=== PATIENT | female | born 1935 | race Caucasian/White ===

== ENCOUNTER 2016-06-11 08:38 | Emergency (ER) | payer MEDICARE, OTHER ==
[~2016-06-11] VITALS: Ht 162.6 cm; Wt 80.0 kg
[~2016-06-11 08:38] MED LIST: ALEN70TA39 PO; BEDSMIS4; CALA240T PO; CALC500T21 PO; CITA10TA4 PO; DOXA1 PO; GABA300C3 PO; HYDR-3534 PO; LISI-360 PO; MOTI25CH PO; OMEP20TA39 PO; PREN0.01 PO; TYLE500T PO; VITA-13 PO; Z.0.CPM; Z.0.WALKERFRONT; Z.0.WHEELSTD
[2016-06-11 08:40] VITALS: BP 114/70; PULSE 94; RESP 16; TEMP 98.7; O2SAT 95
[2016-06-11] MEDS ORDERED: ATOR40TA16 PO (09:00)
[2016-06-11] MEDS ORDERED: ASPI325T PO (09:00)
[2016-06-11] MEDS ORDERED: OMEP20CA2 PO (09:00)
[2016-06-11] MEDS ORDERED: DOXA1TAB35 PO (09:00)
[2016-06-11] MEDS ORDERED: VERA1TAB17 PO (09:00)
[2016-06-11] MEDS ORDERED: GABA300C5 PO (09:00)
[2016-06-11] MEDS ORDERED: CALCTAB23 PO (09:00)
[2016-06-11] MEDS ORDERED: LISI40TA PO (09:00)
[2016-06-11] MEDS ORDERED: AMLO5TAB2 PO (09:00)
[2016-06-11] MEDS ORDERED: PRENTAB (09:00)
[2016-06-11] MEDS ORDERED: CITA10TA4 PO (09:00)
[2016-06-11] MEDS ORDERED: ALEN1TAB48 PO (09:00)
[2016-06-11] MEDS ORDERED: MECL-62 PO (09:00)
--- NOTE | 2016-06-11 09:31 | PD ---
HPI Chief Complaint: Fall Time Seen by Provider: 09:18 Travel History International Travel<30 days: No Contact w/Intl Traveler<30days: No Traveled to known affect area: No History of Present Illness HPI Patient 81-year-old female presents after trip and fall at home yesterday. She complains of right-sided face and left elbow pain. She also states she bruised her left thigh. Denies any loss of consciousness denies any chest pain shortness of breath abdominal pain nausea vomiting diarrhea. Patient is having pain on supination of her right wrist and decided to come in and be seen. PFSH Past Medical History Hx Anticoagulant Therapy: Yes (ASA 325MG DAILY) Arthritis: Yes Asthma: No Autoimmune Disease: No Blood Disorders: No Anxiety: Yes Cancer: No Cardiovascular Problems: Yes High Cholesterol: No Congestive Heart Failure: No COPD: No Cerebrovascular Accident: No Diabetes: No Diminished Hearing: No Endocrine: No Gastrointestinal Disorders: Yes (DYSPHAGIA, ESOPHAGEAL STRICTURE, ULCER HX) GERD: Yes Genitourinary: Yes Hepatitis: No Hiatal Hernia: No Hypertension: Yes Immune Disorder: No Implanted Vascular Access Dvce: Yes Musculoskeletal: Yes (ARTHRITIS, LUMBAR DISC DISPLACEMENT, OSTEO) Neurologic: Yes Psychiatric: Yes (ANXIETY) Reproductive: No Respiratory: No Seizures: No Thyroid Disease: No Ulcer: Yes ?: Not Dilation and Curettage (D&C): Yes Past Surgical History AICD: No Body Medical Devices: REPORTS NONE Eye Surgery: Yes (LOWER LAQUITA. ENTROPIAN REP.) Gynecologic Surgery: Yes (HYSTERECTOMY) Hysterectomy: Yes Joint Replacement: Yes (12/12/14 LTK) Oral Surgery: Yes (TONSILLECTOMY) Pacemaker: No Tonsillectomy: Yes Other Surgery: Yes (12/12/14 LTK) Social History Alcohol Use: No Tobacco Use: No Substance Use: No Allergies-Medications (Allergen,Severity, Reaction): Coded Allergies: No Known Allergies (Verified , 06/11/16) Reported Meds & Prescriptions Reported Meds & Active Scripts Active Reported Citalopram (Citalopram Hydrobromide) 10 Mg Tab 10 Mg PO HS Calcium 500 + D (Calcium Carbonate-Vitamin D) 500-125 Mg-Unit Tab 1 Tab PO DAILY Atorvastatin (Atorvastatin Calcium) 40 Mg Tab 40 Mg PO HS Aspirin 325 Mg Tab 325 Mg PO DAILY Amlodipine (Amlodipine Besylate) 5 Mg Tab 5 Mg PO DAILY Low Iron 27-0.8 mg ( Vit W/ Ferrous Fumara) 1 Tab Tab Lisinopril 40 Mg Tab 40 Mg PO DAILY Doxazosin (Doxazosin Mesylate) 2 Mg Tab 2 Mg PO BID Gabapentin 300 Mg Cap 300 Mg PO BID Meclizine (Meclizine HCl) 25 Mg Tab 25 Mg PO BID PRN Alendronate (Alendronate Sodium) 70 Mg Tab 70 Mg PO Q7D Verapamil ER 24 HR (Verapamil HCl) 240 Mg Tab 240 Mg PO HS Omeprazole 20 Mg Cap 20 Mg PO DAILY Review of Systems Except as stated in HPI: all other systems reviewed are Neg Physical Exam Narrative GENERAL: Well-developed well-nourished no apparent distress. SKIN: Warm and dry. Other than the bruise outlined below on the lateral thigh there is no visible evidence of trauma. HEAD: Atraumatic. Normocephalic. No raccoons eyes no cam signs and no facial bruising or tenderness. EYES: Pupils equal and round. No scleral icterus. No injection or drainage. ENT: No nasal bleeding or discharge. Mucous membranes pink and moist. TMs clear bilaterally. NECK: Trachea midline. No JVD. CARDIOVASCULAR: Regular rate and rhythm. No murmur appreciated. RESPIRATORY: No accessory muscle use. Clear to auscultation. Breath sounds equal bilaterally. GASTROINTESTINAL: Abdomen soft, non-tender, nondistended. Hepatic and splenic margins not palpable. MUSCULOSKELETAL: No obvious deformities. No clubbing. No cyanosis. No edema. Left upper extremity: There is tenderness about the antecubital fossa in the left arm. Supination is limited by pain, no shoulder tenderness no humeral tenderness no forearm tenderness no wrist or hand tenderness. Pulses motor and sensory are intact distally. There is some range of motion limitation of the fingers which patient states is chronic from her arthritis. Patient is able to extend and flex her elbow to full range of motion. Right upper extremity: No tenderness of the shoulder humerus elbow forearm wrist or hand. Pulses motor and sensory intact distally. Left lower extremity: There is a small bruise about the lateral aspect at approximately mid femur shaft. There is no hematoma compartments are soft. Nontender to palpation. No gross deformity. No tenderness at the hip knee ankle or foot. Pulses motor and sensory intact distally. Right lower extremity: There is no tenderness at the hip knee ankle or foot. Pulses motor and sensory intact distally. No gross deformities. Axial spine: no tenderness at the CT or L-spine tenderness in midline. No step-offs. Pelvis stable. NEUROLOGICAL: Awake and alert. No obvious cranial nerve deficits. Motor grossly within normal limits. Normal speech. PSYCHIATRIC: Appropriate mood and affect; insight and judgment normal. Data Data Last Documented VS Vital Signs Date Time Temp Pulse Resp B/P Pulse Ox O2 Delivery O2 Flow Rate FiO2 06/11/16 08:40 98.7 94 16 114/[address] Brain W/O Iv Contrast(Rout) (06/11/16 ) Ct Cerv Spine W/O Contrast (06/11/16 ) Elbow, Complete (4 Vws) (06/11/16 ) Hip, Uni(Ap&Lat) W Ap Pelvis (06/11/16 ) Splint Or Brace Apply/Monitor (06/11/16 09:58) Splint Or Brace Apply/Monitor (06/11/16 09:58) Fiberglass Splint Elbow Adult (06/11/16 ) Sling Cradle Arm (06/11/16 ) MDM Medical Decision Making Medical Screen Exam Complete: Yes Emergency Medical Condition: Yes Differential Diagnosis Humeral head fracture, olecranon fracture, left hip fracture, pelvis fracture likely, closed head injury, C-spine fracture seems unlikely but unable to be cleared by clinical decision rules, Narrative Course Patient roomed in emergency department, CT head and C-spine are negative, left hip and pelvis x-rays negative. Left elbow x-ray does show minimally displaced humeral head fracture. Patient was placed in a splint pulse motor and sensory were checked after splinting and intact. Discussed the patient need follow-up with an orthopedic surgeon. She states she has established with one already Dr. Ramirez who I'm unfamiliar with. Discussed with place referral for Dr. Sherman if Dr. Ramirez is unwilling to see her. Otherwise she is stable for discharge at this time. She was offered pain medicine in the emergency department and declined. She states she has pain medicine at home and will take some when she gets there. Diagnosis Primary Impression: Radial head fracture Qualified Code: S52.122A - Closed displaced fracture of head of left radius, initial encounter Additional Impression: Closed head injury Referrals: Mohit Womack MD Additional Instructions: Follow-up with your orthopedist or Dr. Sherman. Leave splint in place until you follow up with orthopedics. Disposition: 01 DISCHARGE HOME Condition: Stable Redd Peterson MD Jun 11, 2016 09:30
--- NOTE | 2016-06-11 09:55 | RADHPO ---
EXAM DATE/TIME: 06/11/2016 09:26 [facility] COMPARISON: No previous studies available for comparison. INDICATIONS : Left elbow pain fell lastnight. MEDICAL HISTORY : Arthritis. SURGICAL HISTORY : None. ENCOUNTER: Initial ACUITY: 1 day PAIN SCORE: 8/10 LOCATION: Left elbow. FINDINGS: One oblique fracture is seen anterolaterally of the radial head and neck. Fracture appears minimally displaced. No significant step-off/incongruity seen of the articular surface. No other fractures are seen. No subluxations. A moderate-sized lipohemarthrosis is demonstrated. CONCLUSION: Minimally displaced fracture of the radial head and neck. Salvatore Ruby MD on June 11, 2016 at 9:53 Board Certified Radiologist. This report was verified electronically.
--- NOTE | 2016-06-11 09:57 | RADHPO ---
EXAM DATE/TIME: 06/11/2016 09:35 [facility] COMPARISON: No previous studies available for comparison. INDICATIONS : Left hip pain; fell lastnight. MEDICAL HISTORY : Arthritis. SURGICAL HISTORY : None. ENCOUNTER: Initial ACUITY: 1 day PAIN SCORE: 6/10 LOCATION: Left hip FINDINGS: Examination of the left hip was performed with AP Pelvis. The primary and secondary trabecular patte rn of the femoral neck is intact. The hip joint is of normal width without significant sclerosis or bony hypertrophy. The acetabulum is intact. There is mild osteoarthritis. CONCLUSION: Intact pelvis and left hip. Salvatore Ruby MD on June 11, 2016 at 9:55 Board Certified Radiologist. This report was verified electronically.
--- NOTE | 2016-06-11 10:12 | RADHPO ---
EXAM DATE/TIME: 06/11/2016 09:44 [facility] COMPARISON: CT BRAIN W/O CONTRAST, March 17, 2013, 10:37. MRI BRAIN W/O CONTRAST, February 15, 2014, 9:51. C T BRAIN W/O CONTRAST, February 15, 2014, 8:56. INDICATIONS : Fell last night and hit head. Headache. RADIATION DOSE: 60.33 CTDIvol (mGy) MEDICAL HISTORY : Hypertension. Anticoagulant therapy. SURGICAL HISTORY : Tonsillectomy. Hysterectomy.Orthopedic surgery. ENCOUNTER: Initial ACUITY: 2 days PAIN SCALE: 3/10 LOCATION: cranial TECHNIQUE: Multiple contiguous axial images were obtained of the head. Using automated exposure control and adj ustment of the mA and/or kV according to patient size, radiation dose was kept as low as reasonably a chievable to obtain optimal diagnostic quality images. FINDINGS: CEREBRUM: The ventricles are normal for age. No evidence of midline shift, mass lesion, hemorrhage or acute in farction. No extra-axial fluid collections are seen. Mild chronic white matter changes are again not ed. POSTERIOR FOSSA: The cerebellum and brainstem are intact. The 4th ventricle is midline. The cerebellopontine angle i s unremarkable. EXTRACRANIAL: The visualized portion of the orbits is intact. SKULL: The calvaria is intact. No evidence of skull fracture. 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 CONCLUSION: No acute intracranial abnormality. Chronic white matter changes. Salvatore Ruby MD on June 11, 2016 at 10:08 Board Certified Radiologist. This report was verified electronically.
--- NOTE | 2016-06-11 10:50 | RADHPO ---
EXAM DATE/TIME: 06/11/2016 09:44 [facility] COMPARISON: No previous studies available for comparison. INDICATIONS : Fell last night and hit head. Pain. RADIATION DOSE: 25.60 CTDIvol (mGy) MEDICAL HISTORY : Hypertension. Anticoagulant therapy. SURGICAL HISTORY : Tonsillectomy. Hysterectomy.Orthopedic surgery. ENCOUNTER: Initial ACUITY: 2 days PAIN SCALE: 3/10 LOCATION: neck TECHNIQUE: Volumetric scanning of the cervical spine was performed. Multiplanar reconstructions in the sagittal, coronal and oblique axial planes were performed. Using automated exposure control and adjustment o f the mA and/or kV according to patient size, radiation dose was kept as low as reasonably achievable to obtain optimal diagnostic quality images. FINDINGS: Cervical spine alignment is within normal limits. Vertebral bodies have normal height. No cortical br eak or trabecular disruption demonstrated. Multilevel disc space narrowing with uncovertebral and facet osteoarthritis seen, severe at C5/C6 and C6/C7, moderate to severe at C4/C5. There is mild to moderate bilateral foraminal stenosis at C5/C6 and C6/C7. Juxtavertebral soft tissues are within normal limits. CONCLUSION: No fracture or subluxation of the cervical spine. Multilevel degenerative changes as above. Salvatore Ruby MD on June 11, 2016 at 10:46 Board Certified Radiologist. This report was verified electronically.
== END 2016-06-11 11:05 | disposition home or self-care (01) ==
LOC: PHED 08:38
DX: S52.122A Displaced fracture of head of left radius, initial encounter for closed fracture (principal); R51 Headache; M25.552 Pain in left hip; S70.12XA Contusion of left thigh, initial encounter; I10 Essential (primary) hypertension; W01.0XXA Fall on same level from slipping, tripping and stumbling without subsequent striking against object, initial encounter; Y93.9 Activity, unspecified; Y92.009 Unspecified place in unspecified non-institutional (private) residence as the place of occurrence of the external cause
CPT/HCPCS: 29105; 70450; 72125; 73080; 73502

== ENCOUNTER 2016-11-25 10:49 | Observation (INO) | payer MEDICARE ==
[2016-11-25] VITALS (10 sets, daily range): BP systolic 119–154; BP diastolic 59–75; PULSE 63–86; RESP 16–20; TEMP 96.4–98.6; O2SAT 94–97
[~2016-11-25] VITALS: Ht 162.6 cm; Wt 80.0 kg
[~2016-11-25 10:49] MED LIST changes: +ALEN1TAB48 PO; -ALEN70TA39 PO; +AMLO5TAB2 PO; +ASPI325T PO; +ATOR40TA16 PO; -BEDSMIS4; -CALA240T PO; -CALC500T21 PO; +CALCTAB23 PO; -DOXA1 PO; +DOXA1TAB35 PO; -GABA300C3 PO; +GABA300C5 PO; -HYDR-3534 PO; -LISI-360 PO; +LISI40TA PO; +MECL-62 PO; -MOTI25CH PO; +OMEP20CA2 PO; -OMEP20TA39 PO; -PREN0.01 PO; +PRENTAB; -TYLE500T PO; +VERA1TAB17 PO; -VITA-13 PO; -Z.0.CPM; -Z.0.WALKERFRONT; -Z.0.WHEELSTD
[2016-11-25] MEDS ORDERED: DOXA1TAB35 PO (11:14)
--- NOTE | 2016-11-25 11:20 | PD ---
HPI Chief Complaint: Chest Pain Time Seen by Provider: 11:16 Travel History International Travel<30 days: No Contact w/Intl Traveler<30days: No Traveled to known affect area: No History of Present Illness HPI 81-year-old female patient presents to the ER today because she has had several weeks' history of right leg pains especially in the upper thigh area for which she has been following up with primary care doctor and has been told to take aspirin, presents to the ER today because of intermittent right chest pains that started on its own. She states that the pains are a 7 out of 10 and cover 10 minutes at a time and go away. She denies any shortness of breath, coughing , fevers, abdominal pain, or any other issues. She does not know any exacerbating or alleviating factors. Modifying Factors: None Associated Signs & Symptoms: Right leg pains, intermittent chest pains Risk Factors: None PFSH Past Medical History Hx Anticoagulant Therapy: Yes (ASA 325MG DAILY) Arthritis: Yes Asthma: No Autoimmune Disease: No Blood Disorders: No Anxiety: Yes Cancer: No Cardiovascular Problems: Yes High Cholesterol: No Congestive Heart Failure: No COPD: No Cerebrovascular Accident: No Diabetes: No Diminished Hearing: No Endocrine: No Gastrointestinal Disorders: Yes (DYSPHAGIA, ESOPHAGEAL STRICTURE, ULCER HX) GERD: Yes Genitourinary: Yes Hepatitis: No Hiatal Hernia: No Hypertension: Yes Immune Disorder: No Implanted Vascular Access Dvce: Yes Musculoskeletal: Yes (ARTHRITIS, LUMBAR DISC DISPLACEMENT, OSTEO) Neurologic: Yes Psychiatric: Yes (ANXIETY) Reproductive: No Respiratory: No Seizures: No Thyroid Disease: No Ulcer: Yes Tetanus Vaccination: > 5 Years Influenza Vaccination: No ?: Not Menopausal: Yes Dilation and Curettage (D&C): Yes Past Surgical History AICD: No Body Medical Devices: REPORTS NONE Eye Surgery: Yes (LOWER LAQUITA. ENTROPIAN REP.) Gynecologic Surgery: Yes (HYSTERECTOMY) Hysterectomy: Yes Joint Replacement: Yes (12/12/14 LTK) Oral Surgery: Yes (TONSILLECTOMY) Pacemaker: No Tonsillectomy: Yes Other Surgery: Yes (12/12/14 LTK) Social History Alcohol Use: No Tobacco Use: No Substance Use: No Allergies-Medications (Allergen,Severity, Reaction): Coded Allergies: No Known Allergies (Verified , 11/25/16) Reported Meds & Prescriptions Reported Meds & Active Scripts Active Reported Doxazosin (Doxazosin Mesylate) 2 Mg Tab 2 Mg PO DAILY Citalopram (Citalopram Hydrobromide) 10 Mg Tab 10 Mg PO HS Calcium 500 + D (Calcium Carbonate-Vitamin D) 500-125 Mg-Unit Tab 1 Tab PO DAILY Atorvastatin (Atorvastatin Calcium) 40 Mg Tab 40 Mg PO HS Aspirin 325 Mg Tab 325 Mg PO DAILY Amlodipine (Amlodipine Besylate) 5 Mg Tab 5 Mg PO DAILY Low Iron 27-0.8 mg ( Vit W/ Ferrous Fumara) 1 Tab Tab Lisinopril 40 Mg Tab 40 Mg PO DAILY Gabapentin 300 Mg Cap 300 Mg PO BID Alendronate (Alendronate Sodium) 70 Mg Tab 70 Mg PO Q7D Verapamil ER 24 HR (Verapamil HCl) 240 Mg Tab 240 Mg PO HS Omeprazole 20 Mg Cap 20 Mg PO DAILY Review of Systems Except as stated in HPI: all other systems reviewed are Neg Physical Exam Narrative GENERAL: Well-developed elderly white female patient currently in mild distress at awake and oriented 3. SKIN: Focused skin assessment warm/dry. HEAD: Atraumatic. Normocephalic. EYES: Pupils equal and round. No scleral icterus. No injection or drainage. ENT: No nasal bleeding or discharge. Mucous membranes pink and moist. NECK: Trachea midline. No JVD. CARDIOVASCULAR: Regular rate and rhythm. No murmur appreciated. Pulses are present and equal bilaterally. RESPIRATORY: No accessory muscle use. Clear to auscultation. Breath sounds equal bilaterally. GASTROINTESTINAL: Abdomen soft, non-tender, nondistended. Hepatic and splenic margins not palpable. MUSCULOSKELETAL: No obvious deformities. No clubbing. No cyanosis. No edema. EXTREMITIES: No clubbing, cyanosis, or edema. No joint tenderness, effusion, or edema noted. No calf tenderness. NEUROLOGICAL: Awake and alert. No obvious cranial nerve deficits. Motor grossly within normal limits. Normal speech. PSYCHIATRIC: Appropriate mood and affect; insight and judgment normal. Data Data Last Documented VS Vital Signs Date Time Temp Pulse Resp B/P (MAP) Pulse Ox O2 Delivery O2 Flow Rate FiO2 11/25/16 13:34 77 16 136/61 (86) 96 Room Air 11/25/16 11:03 98.6 Orders Orders Electrocardiogram (11/25/16 11:16) Ckmb (Isoenzyme) Profile (11/25/16 11:16) Complete Blood Count With Diff (11/25/16 11:16) Comprehensive Metabolic Panel (11/25/16 11:16) D-Dimer (11/25/16 11:16) Magnesium (Mg) (11/25/16 11:16) Prothrombin Time / Inr (Pt) (11/25/16 11:16) Act Partial Throm Time (Ptt) (11/25/16 11:16) Troponin I (11/25/16 11:16) Chest, Single Ap (11/25/16 11:16) Ecg Monitoring (11/25/16 11:16) Bilateral Bp Monitoring (11/25/16 11:16) Iv Access Insert/Monitor (11/25/16 11:16) Oximetry (11/25/16 11:16) Oxygen Administration (11/25/16 11:16) Sodium Chloride 0.9% Flush (Ns Flush) (11/25/16 11:30) Us Leg Venous Doppler (11/25/16 11:16) Ventilation & Perfusion Scan (11/25/16 12:10) Labs Laboratory Tests Test 11/25/16 11:20 White Blood Count 10.1 TH/MM3 Red Blood Count 3.81 MIL/MM3 Hemoglobin 11.7 GM/DL Hematocrit 35.5 % Mean Corpuscular Volume 93.1 FL Mean Corpuscular Hemoglobin 30.6 PG Mean Corpuscular Hemoglobin Concent 32.9 % Red Cell Distribution Width 12.6 % Platelet Count 243 TH/MM3 Mean Platelet Volume 7.9 FL Neutrophils (%) (Auto) 85.5 % Lymphocytes (%) (Auto) 10.0 % Monocytes (%) (Auto) 4.4 % Eosinophils (%) (Auto) 0.0 % Basophils (%) (Auto) 0.1 % Neutrophils # (Auto) 8.7 TH/MM3 Lymphocytes # (Auto) 1.0 TH/MM3 Monocytes # (Auto) 0.4 TH/MM3 Eosinophils # (Auto) 0.0 TH/MM3 Basophils # (Auto) 0.0 TH/MM3 CBC Comment DIFF FINAL Differential Comment Prothrombin Time 11.1 SEC Prothromb Time International Ratio 1.0 RATIO Activated Partial Thromboplast Time 24.5 SEC D-Dimer Quantitative (PE/DVT) 1.51 MG/L FEU Blood Urea Nitrogen 25 MG/DL Creatinine 1.30 MG/DL Random Glucose 103 MG/DL Total Protein 8.0 GM/DL Albumin 3.7 GM/DL Calcium Level 9.1 MG/DL Magnesium Level 2.2 MG/DL Alkaline Phosphatase 93 U/L Aspartate Amino Transf (AST/SGOT) 20 U/L Alanine Aminotransferase (ALT/SGPT) 21 U/L Total Bilirubin 0.4 MG/DL Sodium Level 134 MEQ/L Potassium Level 3.6 MEQ/L Chloride Level 100 MEQ/L Carbon Dioxide Level 26.5 MEQ/L Anion Gap 8 MEQ/L Estimat Glomerular Filtration Rate 39 ML/MIN Total Creatine Kinase 53 U/L Troponin I LESS THAN 0.02 NG/ML [facility] Medical Decision Making Medical Screen Exam Complete: Yes Emergency Medical Condition: Yes Medical Record Reviewed: Yes Interpretation(s) EKG shows NSR, no ST elevation or depression, and no arrhythmias. No significant T-wave inversions. Laboratory Tests Test 11/25/16 11:20 Red Blood Count 3.81 MIL/MM3 (4.00-5.30) Neutrophils (%) (Auto) 85.5 % (16.0-70.0) Neutrophils # (Auto) 8.7 TH/MM3 (1.8-7.7) D-Dimer Quantitative (PE/DVT) 1.51 MG/L FEU (0.00-0.50) Blood Urea Nitrogen 25 MG/DL (7-18) Creatinine 1.30 MG/DL (0.50-1.00) Sodium Level 134 MEQ/L (136-145) Estimat Glomerular Filtration Rate 39 ML/MIN (>89) Troponin I LESS THAN 0.02 NG/ML Differential Diagnosis Right leg pains, intermittent chest pains: DVT versus muscle strain versus metabolic issues versus dysrhythmias versus ACS Narrative Course Chest x-ray did not show any signs of acute pulmonary processes. Her cardiac enzymes are negative. D-dimer is elevated and a VQ scan was ordered for further evaluation. Ultrasound was also ordered on the right leg to rule out DVT. Ultrasound did not show DVT and VQ scan was low probability. At this point, my plan would be to admit the patient for further evaluation a chest pain in the chest pain center. Case is discussed with Dr. Miller for admission. Diagnosis Primary Impression: Atypical chest pain Admitting Information Admitting Physician Requests: Admit Starr Whelan MD Nov 25, 2016 11:20
[2016-11-25] MEDS ORDERED: SODIUM CHLORIDE 0.9% FLUSH 10 ML FLUSH IVF PRN (11:30)
[2016-11-25 11:33] LABS: AUTOMATED NEUTROPHIL # 8.7 TH/MM3 (1.8-7.7); BASOPHIL % 0.1 % (0.0-2.0); HEMATOCRIT 35.5 % (35.0-46.0); HEMO FLAGS DIFF FINAL; MEAN CELL VOLUME 93.1 FL (80.0-100.0); MEAN CORPUSCULAR HEMOGLOBIN 30.6 PG (27.0-34.0); MEAN CORPUSCULAR HGB CONC 32.9 % (32.0-36.0); MONO % 4.4 % (0.0-8.0); NEUT % 85.5 % (16.0-70.0); PLATELET COUNT 243 TH/MM3 (150-450); RED BLOOD COUNT 3.81 MIL/MM3 (4.00-5.30); RED CELL DISTRIBUTION WIDTH 12.6 % (11.6-17.2); WHITE BLOOD COUNT 10.1 TH/MM3 (4.0-11.0)
[2016-11-25 11:42] LABS: CHLORIDE 100 MEQ/L (98-107); POTASSIUM 3.6 MEQ/L (3.5-5.1); SODIUM (NA) 134 MEQ/L (136-145)
[2016-11-25 11:45] LABS: ANION GAP 8 MEQ/L (5-15); BICARBONATE 26.5 MEQ/L (21.0-32.0); BLOOD UREA NITROGEN 25 MG/DL (7-18); MAGNESIUM 2.2 MG/DL (1.5-2.5)
[2016-11-25 11:47] LABS: APTT (PATIENT) 24.5 SEC (24.3-30.1); PROTHROMBIN TIME - PATIENT 11.1 SEC (9.8-11.6)
[2016-11-25 11:48] LABS: ALT (GPT) 21 U/L (10-53); AST (GOT) 20 U/L (15-37)
[2016-11-25 11:49] LABS: GLOMERULAR FILTRATION RATE 39 ML/MIN (>89)
[2016-11-25 11:50] LABS: TOTAL BILIRUBIN ADULT 0.4 MG/DL (0.2-1.0)
[2016-11-25 11:51] LABS: ALKALINE PHOSPHATASE 93 U/L (45-117)
[2016-11-25 11:53] LABS: CREATINE KINASE 53 U/L (26-192)
--- NOTE | 2016-11-25 11:54 | RADRPT ---
EXAM DATE/TIME: 11/25/2016 11:25 [facility] COMPARISON: No previous studies available for comparison. INDICATIONS : Patient has had chest pain off and on for two weeks. MEDICAL HISTORY : Hypertension. Gastroesophageal reflux disease. Osteoarthritis. Cataracts. Vertigh. Esophageal str icture. Dysphagia. Ulcer. Renal disease. SURGICAL HISTORY : Tonsillectomy. Hysterectomy. Total knee replacement, left. ENCOUNTER: Initial ACUITY: 2 weeks PAIN SCORE: 1/10 LOCATION: Bilateral chest FINDINGS: Cardiomegaly. Right lung is clear. There is blunting of the left lateral costophrenic angle. This may be related to chronic scarring or a small effusion. Osseous structures are intact. CONCLUSION: Blunted left lateral costophrenic angle as above. Cornelio Chu MD on November 25, 2016 at 11:52 Board Certified Radiologist. This report was verified electronically.
--- NOTE | 2016-11-25 13:11 | RADRPT ---
EXAM DATE/TIME: 11/25/2016 12:09 [facility] COMPARISON: No previous studies available for comparison. INDICATIONS : Right groin pain. MEDICAL HISTORY : Hypertension. Anticoagulant therapy. Dysphagia. Esophageal stricture. Ulcer. Arthritis. Renal d isease, Stage III. SURGICAL HISTORY : Tonsillectomy. Hysterectomy. Dilation and curettage. Lumbar synovial cystectomy. Left total knee re placement. ENCOUNTER: Initial ACUITY: 1 day PAIN SCORE: 4/10 LOCATION: Right leg. TECHNIQUE: Venous ultrasound of the leg was performed from the inguinal ligament to the proximal calf. Real-lili e, color Doppler and spectral tracing, compression and augmentation techniques were used. FINDINGS: There is normal compressibility of the deep venous system from the inguinal region to the proximal ca lf. No echogenic clot is seen in the lumen of the common femoral, femoral, popliteal, and posterior tibial veins. There is a normal response of the venous system to proximal and distal augmentation an d respiration. In the popliteal fossa a 4.8 x 4.2 x 2.2 cm fluid collection is identified characteri stic of a Nance's cyst. CONCLUSION: No evidence of DVT. Nance's cyst. Cornelio Chu MD on November 25, 2016 at 13:09 Board Certified Radiologist. This report was verified electronically.
--- NOTE | 2016-11-25 15:19 | RADRPT ---
EXAM DATE/TIME: 11/25/2016 12:56 [facility] COMPARISON: CHEST SINGLE AP, November 25, 2016, 11:25. INDICATIONS : Right chest pain for 1 day and right leg pain for several weeks. DOSE: 8.6 mCi Tc99m MAA IV 1.3 mCi Tc99m DTPA aerosol MEDICAL HISTORY : Gastroesophageal reflux disease. Hypertension. Renal failure, chronic. SURGICAL HISTORY : Hysterectomy. Tonsillectomy. Total knee replacement, left. ENCOUNTER: Initial ACUITY: 1 day PAIN SCALE: 7/10 LOCATION: Right chest TECHNIQUE: Following five minutes of tidal breathing of DTPA aerosol, planar images of the lungs were performed in eight projections. The patient was then injected with MAA, and eight-view perfusion scan was perf ormed. FINDINGS: There is a homogeneous pattern of aerosol delivery to the periphery of both lungs. No focal ventilat ory defects are seen. The perfusion lung scan demonstrates a homogenous pattern of uptake in both lungs. No segmental or s ubsegmental defects are seen. Heart size is prominent. CONCLUSION: 1. Low probability for pulmonary embolus. 2. Cardiomegaly Garrett Yeager MD on November 25, 2016 at 15:16 Board Certified Radiologist. This report was verified electronically.
[2016-11-25] MEDS ORDERED: SODIUM CHLORIDE 0.9% FLUSH 10 ML FLUSH IV FLUSH PRN (15:45)
[2016-11-25] MEDS ORDERED: NITROGLYCERIN 0.4 MG SL 25 TABS/BTL SL PRN (15:45)
[2016-11-25] MEDS ORDERED: ONDANSETRON HCL 4 MG/2 ML VIAL IV PRN (15:45)
--- NOTE | 2016-11-25 16:22 | HHI.HP ---
[facility] Service [facility] Primary Care Physician Navin Castillo DO Admission Diagnosis atypical chest pain Diagnoses: (1) Right groin pain (2) CKD (chronic kidney disease) stage 3, GFR 30-59 ml/min (3) Atypical chest pain (4) HTN (hypertension) Travel History International Travel<30 Days: No Contact w/Intl Traveler <30 Da: No Traveled to Known Affected Are: No History of Present Illness This is a very pleasant 81 year-old female patient with past medical history of hypertension, chronic kidney disease and osteoarthritis who presented to the ER today with right groin pain which was cramping in nature. However she also has been having some intermittent retrosternal chest pain which is sharp and pressure-like and radiates to the back which has been going on for the past 3 weeks. The symptoms occur at rest and lasts about 20 minutes and then resolve. No nausea, diaphoresis or shortness of breath associated. No radiation. Symptoms moderate. The patient has additionally been having intermittent right groin pain for the past month however last night and today it has been quite severe. The patient does have osteoarthritis of the right knee and is scheduled to undergo a right knee arthroplasty in January. The patient denies any cardiac history. She has never had a stress test. She states that she had an echocardiogram 2 years ago and was told that she had a cardiomyopathy, but she states that this was never followed up and she has not seen a casino controller. The patient also notes that she's been having some pedal edema more so in the right foot. She does have a brother who had a myocardial infarction in his older years. The patient has no tobacco use history. Review of Systems Constitutional: DENIES: Fever, Chills Eyes: DENIES: Blurred vision, Diplopia Ears, nose, mouth, throat: DENIES: Throat pain, Hoarseness Respiratory: DENIES: Cough, Shortness of breath Cardiovascular: COMPLAINS OF: Chest pain, Lower Extremity Edema, DENIES: Palpitations, Dyspnea on Exertion Gastrointestinal: DENIES: Constipation, Vomiting Musculoskeletal: COMPLAINS OF: Joint pain (right knee pain) Integumentary: DENIES: Rash Hematologic/lymphatic: DENIES: Lymphadenopathy Neurologic: DENIES: Headache, Localized weakness Psychiatric: DENIES: Anxiety, Confusion Past Family Social History Past Medical History Hypertension Osteoarthritis of the knees Peripheral neuropathy Depression Chronic kidney disease stage III GERD History of esophageal stricture Osteoporosis Past Surgical History Left knee arthroplasty Eye surgery Hysterectomy Tonsillectomy Reported Medications Allergies Coded Allergies Type Severity Reaction Last Updated Verified No Known Allergies 11/25/16 Yes Active Scripts Medications Dose Route/Sig Max Daily Dose Days Date Category Doxazosin (Doxazosin Mesylate) 2 Mg Tab 2 Mg PO DAILY 11/25/16 Reported Citalopram (Citalopram Hydrobromide) 10 Mg Tab 10 Mg PO HS 06/11/16 Reported Calcium 500 + D (Calcium Carbonate-Vitamin D) 500-125 Mg-Unit Tab 1 Tab PO DAILY 06/11/16 Reported Atorvastatin (Atorvastatin Calcium) 40 Mg Tab 40 Mg PO HS 06/11/16 Reported Aspirin 325 Mg Tab 325 Mg PO DAILY 06/11/16 Reported Amlodipine (Amlodipine Besylate) 5 Mg Tab 5 Mg PO DAILY 06/11/16 Reported Low Iron 27-0.8 mg ( Vit W/ Ferrous Fumara) 1 Tab Tab 06/11/16 Reported Lisinopril 40 Mg Tab 40 Mg PO DAILY 06/11/16 Reported Gabapentin 300 Mg Cap 300 Mg PO BID 06/11/16 Reported Alendronate (Alendronate Sodium) 70 Mg Tab 70 Mg PO Q7D 06/11/16 Reported Verapamil ER 24 HR (Verapamil HCl) 240 Mg Tab 240 Mg PO HS 06/11/16 Reported Omeprazole 20 Mg Cap 20 Mg PO DAILY 06/11/16 Reported Allergies: Coded Allergies: No Known Allergies (Verified , 11/25/16) Family History As per history of present illness Social History As per history of present illness. No alcohol use. No history of tobacco use. Physical Exam Vital Signs Vital Signs Date Time Temp Pulse Resp B/P (MAP) Pulse Ox O2 Delivery O2 Flow Rate FiO2 11/25/16 16:04 70 16 139/71 (93) 95 Room Air 11/25/16 15:50 Room Air 11/25/16 13:34 77 16 136/61 (86) 96 Room Air 11/25/16 11:33 127/59 (81) 119/61 (80) 11/25/16 11:20 97 Room Air 11/25/16 11:20 97 Room Air 11/25/16 11:07 (97) 11/25/16 11:03 98.6 86 16 154/69 (97) 97 Room Air 11/25/16 11:03 Room Air Physical Exam GENERAL: Well-nourished, well-developed elderly female patient. SKIN: Warm and dry. HEAD: Normocephalic. EYES: No scleral icterus. No injection or drainage. NECK: Supple, trachea midline. No JVD or lymphadenopathy. CARDIOVASCULAR: Regular rate and rhythm without murmurs, gallops, or rubs. RESPIRATORY: Breath sounds equal bilaterally. No accessory muscle use. GASTROINTESTINAL: Abdomen soft, non-tender, nondistended. EXTREMITIES: Trace pedal edema bilaterally. No right groin tenderness. Old left vertical knee scar. NEUROLOGICAL: Awake, alert, and oriented x 3. Non-focal. Laboratory Laboratory Tests Test 11/25/16 11:20 White Blood Count 10.1 Red Blood Count 3.81 Hemoglobin 11.7 Hematocrit 35.5 Mean Corpuscular Volume 93.1 Mean Corpuscular Hemoglobin 30.6 Mean Corpuscular Hemoglobin Concent 32.9 Red Cell Distribution Width 12.6 Platelet Count 243 Mean Platelet Volume 7.9 Neutrophils (%) (Auto) 85.5 Lymphocytes (%) (Auto) 10.0 Monocytes (%) (Auto) 4.4 Eosinophils (%) (Auto) 0.0 Basophils (%) (Auto) 0.1 Neutrophils # (Auto) 8.7 Lymphocytes # (Auto) 1.0 Monocytes # (Auto) 0.4 Eosinophils # (Auto) 0.0 Basophils # (Auto) 0.0 CBC Comment DIFF FINAL Differential Comment Prothrombin Time 11.1 Prothromb Time International Ratio 1.0 Activated Partial Thromboplast Time 24.5 D-Dimer Quantitative (PE/DVT) 1.51 Blood Urea Nitrogen 25 Creatinine 1.30 Random Glucose 103 Total Protein 8.0 Albumin 3.7 Calcium Level 9.1 Magnesium Level 2.2 Alkaline Phosphatase 93 Aspartate Amino Transf (AST/SGOT) 20 Alanine Aminotransferase (ALT/SGPT) 21 Total Bilirubin 0.4 Sodium Level 134 Potassium Level 3.6 Chloride Level 100 Carbon Dioxide Level 26.5 Anion Gap 8 Estimat Glomerular Filtration Rate 39 Total Creatine Kinase 53 Troponin I LESS THAN 0.02 Result Diagram: 11/25/16 1120 11/25/16 1120 Imaging Lung VQ scan reviewed -low probability for PE. Doppler ultrasound leg is reviewed and negative for DVT. EKG reviewed and shows sinus rhythm with left axis deviation, LVH no acute ST or T-wave changes Caprini VTE Risk Assessment Caprini VTE Risk Assessment: No/Low Risk (score <= 1) Caprini Risk Assessment Model Point Value = 1 Point Value = 2 Point Value = 3 Point Value = 5 Age 41-60 Minor surgery BMI > 25 kg/m2 Swollen legs Varicose veins or History of unexplained or recurrent spontaneous Oral contraceptives or hormone replacement Sepsis (< 1 month) Serious lung disease, including pneumonia (< 1 month) Abnormal pulmonary function Acute myocardial infarction Congestive heart failure (< 1 month) History of inflammatory bowel disease Medical patient at bed rest Age 61-74 Arthroscopic surgery Major open surgery (> 45 min) Laparoscopic surgery (> 45 min) Malignancy Confined to bed (> 72 hours) Immobilizing plaster cast Central venous access Age >= 75 History of VTE Family history of VTE Factor V Leiden Prothrombin [id number] Lupus anticoagulant Anticardiolipin antibodies Elevated serum homocysteine Heparin-induced thrombocytopenia Other congenital or acquired thrombophilia Stroke (< 1 month) Elective arthroplasty Hip, pelvis, or leg fracture Acute spinal cord injury (< 1 month) Prophylaxis Regimen Total Risk Factor Score Risk Level Prophylaxis Regimen 0-1 Low Early ambulation 2 Moderate Order ONE of the following: *Sequential Compression Device (SCD) *Heparin 5000 units SQ BID 3-4 Higher Order ONE of the following medications: *Heparin 5000 units SQ TID *Enoxaparin/Lovenox 40 mg SQ daily (WT < 150 kg, CrCl > 30 mL/min) *Enoxaparin/Lovenox 30 mg SQ daily (WT < 150 kg, CrCl > 10-29 mL/min) *Enoxaparin/Lovenox 30 mg SQ BID (WT < 150 kg, CrCl > 30 mL/min) AND/OR *Sequential Compression Device (SCD) 5 or more Highest Order ONE of the following medications: *Heparin 5000 units SQ TID (Preferred with Epidurals) *Enoxaparin/Lovenox 40 mg SQ daily (WT < 150 kg, CrCl > 30 mL/min) *Enoxaparin/Lovenox 30 mg SQ daily (WT < 150 kg, CrCl > 10-29 mL/min) *Enoxaparin/Lovenox 30 mg SQ BID (WT < 150 kg, CrCl > 30 mL/min) AND *Sequential Compression Device (SCD) Assessment and Plan Assessment and Plan -Intermittent retrosternal chest pain ongoing for the past 3 weeks in a patient with history of hypertension, chronic kidney disease and familial history of coronary artery disease. Will place her in the chest pain center obtain serial cardiac enzymes. If these are negative we'll proceed with nuclear stress test in the morning. Patient is agreeable to this. Additionally given her reported history of cardiomyopathy will check an echocardiogram. -Cramping right groin pain - may be related to her right knee osteoarthritic pain, she is due for an arthroplasty of that knee in January. Continue pain control. Follow-up with PCP and orthopedic physician. -Trace pedal edema. Doppler ultrasound was negative for DVT. Suspect this is dependent edema. Echocardiogram pending. -Hypertension - continue home medications -Osteoarthritis of the knees -Peripheral neuropathy - continue Neurontin -Depression - continue Celexa -Chronic kidney disease stage III - will repeat BMP in the morning to ensure stability -GERD, History of esophageal stricture - continue PPI. -DVT prophylaxis with SCDs Augusta Miller MD Nov 25, 2016 16:22
[2016-11-25 17:21] LABS: CREATINE KINASE 43 U/L (26-192)
[2016-11-25] MEDS: VERAPAMIL HCL 240 MG SUSTAINED RELEASE TAB PO SCH (20:32)
[2016-11-25] MEDS: ATORVASTATIN 40 MG TAB PO SCH (20:32)
[2016-11-25] MEDS: CITALOPRAM HYDROBROMIDE 20 MG TAB PO SCH (20:33)
[2016-11-25] MEDS: GABAPENTIN 300 MG CAP PO SCH (20:33)
[2016-11-25] MEDS: SODIUM CHLORIDE 0.9% FLUSH 10 ML FLUSH IV FLUSH SCH (20:33)
[2016-11-25 20:52] LABS: CHLORIDE 101 MEQ/L (98-107); POTASSIUM 3.4 MEQ/L (3.5-5.1); SODIUM (NA) 135 MEQ/L (136-145)
[2016-11-25 20:55] LABS: ANION GAP 6 MEQ/L (5-15); BICARBONATE 27.6 MEQ/L (21.0-32.0); BLOOD UREA NITROGEN 23 MG/DL (7-18)
[2016-11-25 20:58] LABS: GLOMERULAR FILTRATION RATE 43 ML/MIN (>89)
[2016-11-25 21:20] LABS: CREATINE KINASE 39 U/L (26-192)
[2016-11-26] VITALS (9 sets, daily range): BP systolic 99–148; BP diastolic 56–76; PULSE 55–86; RESP 16–18; TEMP 97–98; O2SAT 93–99
[2016-11-26] MEDS: ASPIRIN 325 MG TAB PO SCH (08:32)
[2016-11-26] MEDS: SODIUM CHLORIDE 0.9% FLUSH 10 ML FLUSH IV FLUSH SCH ×2 (08:32→21:13)
[2016-11-26] MEDS: GABAPENTIN 300 MG CAP PO SCH ×2 (08:33→21:12)
[2016-11-26] MEDS: PANTOPRAZOLE SOD 20 MG DELAYED RELEASE TAB PO SCH (08:33)
[2016-11-26] MEDS: LISINOPRIL 20 MG TAB PO SCH (08:33)
[2016-11-26] MEDS: amLODIPine BESYLATE 5 MG TAB PO SCH (08:33)
[2016-11-26] MEDS: DOXAZOSIN MESYLATE 2 MG TAB PO SCH (08:40)
[2016-11-26] MEDS: ACETAMINOPHEN 500 MG CPLT PO PRN ×2 (10:00→21:13)
--- NOTE | 2016-11-26 19:45 | EKG ---
Date Performed: 11/25/2016 Time Performed: 20:04:26 PTAGE: 81 years EKG: Sinus rhythm MARKED LEFT AXIS DEVIATION MODERATE VOLTAGE CRITERIA FOR LVH, CONSIDER NORMAL VARIANT ABNORMAL R WAV E PROGRESSION ABNORMAL ECG PREVIOUS TRACING : 11/25/2016 17.08 Compared to prior tracing no significant change DOCTOR: Nael Cooney Interpretating Date/Time 11/26/2016 19:45:10
--- NOTE | 2016-11-26 19:53 | EKG ---
Date Performed: 11/25/2016 Time Performed: 17:08:55 PTAGE: 81 years EKG: Sinus rhythm WITH OCCASIONAL SUPRAVENTRICULAR PREMATURE COMPLEXES POSSIBLE LEFT ATRIAL ENLARGEMENT MARKED LEFT AX IS DEVIATION POSSIBLE LEFT VENTRICULAR HYPERTROPHY DELAYED R WAVE PROGRESSION ABNORMAL ECG PREVIOUS TRACING : 11/25/2016 11.35 Compared to prior tracing no significant change DOCTOR: Nael Cooney Interpretating Date/Time 11/26/2016 19:51:26
--- NOTE | 2016-11-26 20:08 | EKG ---
Date Performed: 11/25/2016 Time Performed: 11:35:01 PTAGE: 81 years EKG: Sinus rhythm MARKED LEFT AXIS DEVIATION MODERATE VOLTAGE CRITERIA FOR LVH, CONSIDER NORMAL VARIANT ABNORMAL R WAV E PROGRESSION ABNORMAL ECG PREVIOUS TRACING : 02/15/2014 08.10 Compared to prior tracing no significant change DOCTOR: Nael Cooney Interpretating Date/Time 11/26/2016 20:06:31
[2016-11-26] MEDS: ATORVASTATIN 40 MG TAB PO SCH (21:12)
[2016-11-26] MEDS: CITALOPRAM HYDROBROMIDE 20 MG TAB PO SCH (21:12)
[2016-11-26] MEDS: VERAPAMIL HCL 240 MG SUSTAINED RELEASE TAB PO SCH (21:12)
--- NOTE | 2016-11-26 23:44 | HHI.PR ---
Subjective Remarks Patient seen this morning. Says she is feeling a little better. Says that chest pain has resolved. Still has right hip pain. Patient with known history of bowel psychosis. Denies any leg weakness or any change in leg strength recently. Objective Vital Signs Date Time Temp Pulse Resp B/P (MAP) Pulse Ox O2 Delivery O2 Flow Rate FiO2 11/26/16 23:00 86 11/26/16 20:45 93 21 11/26/16 20:00 97.6 66 16 115/63 (80) 93 11/26/16 18:00 98.0 67 18 116/68 (84) 97 11/26/16 12:00 97.3 62 18 115/69 (84) 94 11/26/16 10:00 99 21 11/26/16 08:00 97.0 66 18 148/76 (100) 99 11/26/16 08:00 59 11/26/16 04:00 97.2 58 16 124/72 (89) 96 11/26/16 00:00 97.2 55 16 99/56 (70) 96 I/O 11/26/16 11/26/16 11/26/16 11/27/16 11/27/16 11/27/16 06:59 14:59 22:59 06:59 14:59 22:59 Intake Total 840 ml Balance 840 ml Intake Oral 840 ml # Voids 1 Result Diagram: 11/25/16 1120 11/25/162004 Objective Remarks GENERAL: Patient sitting up in bed. Appears comfortable. SKIN: Warm and dry. HEAD: Normocephalic. EYES: No scleral icterus. No injection or drainage. NECK: Supple, trachea midline. No JVD CARDIOVASCULAR: Regular rate and rhythm without murmurs, gallops, or rubs. RESPIRATORY: Breath sounds equal bilaterally. No accessory muscle use. GASTROINTESTINAL: Abdomen soft, non-tender, nondistended. MUSCULOSKELETAL: No cyanosis. Trace bilateral lower extremity edema. BACK: Nontender without obvious deformity. No CVA tenderness. A/P Assessment and Plan Patient had VQ scan. We'll need this to washout before undergoing nuclear perfusion scan tomorrow. Bilateral peripheral edema, chest pain continues. Echocardiogram ordered. -Intermittent retrosternal chest pain ongoing for the past 3 weeks in a patient with history of hypertension, chronic kidney disease and familial history of coronary artery disease. Will place her in the chest pain center obtain serial cardiac enzymes. If these are negative we'll proceed with nuclear stress test in the morning. Patient is agreeable to this. Additionally given her reported history of cardiomyopathy will check an echocardiogram. -Cramping right groin pain - may be related to her right knee osteoarthritic pain, she is due for an arthroplasty of that knee in January. Continue pain control. Follow-up with PCP and orthopedic physician. -Trace pedal edema. Doppler ultrasound was negative for DVT. Suspect this is dependent edema. Echocardiogram pending. -Hypertension - continue home medications -Osteoarthritis of the knees -Peripheral neuropathy - continue Neurontin -Depression - continue Celexa -Chronic kidney disease stage III - will repeat BMP in the morning to ensure stability -GERD, History of esophageal stricture - continue PPI. -DVT prophylaxis with SCDs Parag Hunt MD Nov 26, 2016 23:44
[2016-11-27] VITALS (11 sets, daily range): BP systolic 94–153; BP diastolic 63–78; PULSE 62–86; RESP 16–20; TEMP 97.4–98.8; O2SAT 93–97
[2016-11-27] MEDS ORDERED: oxyCODONE/ACETAMINOPHEN 5 MG/325 MG TAB PO ONE (00:30)
[2016-11-27] MEDS ORDERED: SODIUM CHLOR 0.9% 1000 ML INJ 1,000 ML IV SCH (07:45)
--- NOTE | 2016-11-27 07:59 | HHI.PR ---
Subjective Remarks Follow up for chest pain. I was alerted at approximately 0730 that the patient had a fall. The patient states she was trying to pull up her underwear in the bathroom when she lost her balance and fell onto her right knee. She states she is supposed to get a replacement in this knee soon. She admits to pain down the entire right leg, but denies new pain in the R hip. There is a deformity to the right second toe which she states is new. She denies any head injury or upper body injury. She denies any chest pain or shortness of breath. Patient started to experience lightheadedness after fall, but denies dizziness. Found to be significantly hypotensive which subsequently improved. Objective Vitals Vital Signs Date Time Temp Pulse Resp B/P (MAP) Pulse Ox O2 Delivery O2 Flow Rate FiO2 11/27/16 04:00 98.8 63 16 113/72 (86) 94 11/27/16 00:00 97.6 62 16 133/71 (91) 95 11/26/16 23:00 86 11/26/16 20:45 93 21 11/26/16 20:00 97.6 66 16 115/63 (80) 93 11/26/16 18:00 98.0 67 18 116/68 (84) 97 11/26/16 12:00 97.3 62 18 115/69 (84) 94 11/26/16 10:00 99 21 11/26/16 08:00 97.0 66 18 148/76 (100) 99 11/26/16 08:00 59 I/O 11/26/16 11/26/16 11/26/16 11/27/16 11/27/16 11/27/16 07:00 15:00 23:00 07:00 15:00 23:00 Intake Total 840 ml 240 ml Balance 840 ml 240 ml Intake Oral 840 ml 240 ml # Voids 1 1 Result Diagram: 11/25/16 1120 11/25/162004 Objective Remarks GENERAL: Elderly well-developed patient in no apparent distress but appears in pain sitting in chair. SKIN: Warm and dry. No ecchymosis to the right leg noted. HEAD: Atraumatic. Normocephalic. CARDIOVASCULAR: Regular rate and rhythm. RESPIRATORY: No accessory muscle use. Clear to auscultation. Breath sounds equal bilaterally. GASTROINTESTINAL: Abdomen soft, non-tender, nondistended. MUSCULOSKELETAL: No deformity to the right hip or notable tenderness in this area. Tender to palpation over the right patella and down the length of the tibia and tender around the right ankle. The right second toe is bent, appears dislocated. No swelling of the right lower extremity noted. 2+ right DP pulse. NEUROLOGICAL: Awake and alert. Normal speech. Urinary Catheter: No Vascular Central Line Catheter: No A/P Problem List: (1) Right groin pain ICD Code: R10.31 - Right lower quadrant pain (2) CKD (chronic kidney disease) stage 3, GFR 30-59 ml/min ICD Code: N18.3 - CKD (chronic kidney disease) stage 3, GFR 30-59 ml/min Status: Chronic (3) Atypical chest pain ICD Code: R07.89 - Other chest pain Status: Acute (4) HTN (hypertension) ICD Code: I10 - HTN (hypertension) Status: Chronic Assessment and Plan -Fall: Patient had a mechanical fall this morning injuring her right leg. There appears to be deformity to her right second toe. The patient did experience lightheadedness and significant hypotension after the event likely vasovagal from the trauma/pain which did subsequently improve without intervention. No new injury to the right hip. X-rays reveal dislocation at the right 2nd MTP joint and fractures to the distal third and fourth metatarsals. She additionally has a possible fracture to the inferior right patella. [place] ordered with breakthrough morphine prn as patient in pain and BP now starting to increase. Orthopedics consulted. I spoke with Dr. Catie Perez's PA who has reviewed R knee x-ray stating it appears chronic. Recommends knee immobilizer and follow up with ortho in 1 week. States podiatry will need to be consulted for foot injuries. -Intermittent retrosternal chest pain ongoing for the past 3 weeks in a patient with history of hypertension, chronic kidney disease and familial history of coronary artery disease - Patient was placed in chest pain center. Serial cardiac enzymes negative. EKGs reveals marked left axis deviation but no new ischemic changes. Chest x-ray shows blunted left costophrenic angle which could be effusion vs scarring. Given her reported history of cardiomyopathy echocardiogram ordered. Echo with mild concentric left ventricular hypertrophy, impaired left ventricular relaxation (grade 1 diastolic dysfunction), right ventricular size is upper limits of normal, diffuse calcification of the aortic valve, mild aortic valve regurgitation, trace tricuspid valve regurgitation, and small pericardial effusion present, but no pre-tamponade. Patient was unable to have Lexiscan performed yesterday due to VQ scan performed the day before. Lexiscan ordered today and normal. Received maintenance IV fluids since NPO. -Cramping right groin pain - may be related to her right knee osteoarthritic pain, she is due for an arthroplasty of that knee in January. Continue pain control. Follow-up with PCP and orthopedic physician. -Trace pedal edema. Doppler ultrasound was negative for DVT. Suspect this is dependent edema. Echocardiogram pending. -Hypertension - continue home medications -Osteoarthritis of the knees -Peripheral neuropathy - continue Neurontin -Depression - continue Celexa -Chronic kidney disease stage III - Cr stable at 1.20 today. -Mild hypokalemia on 11/25. Resolved today. -GERD, History of esophageal stricture - continue PPI. -DVT prophylaxis with SCDs Attending Statement The exam, history, and the medical decision-making described in the above note were completed with the assistance of the mid-level provider. I reviewed and agree with the findings presented. I attest that I had a [id number] encounter with the patient on the same day, and personally performed and documented my assessment and findings in the medical record.patient seen and examined earlier this afternoon. Says that she sprained her right ankle. Fell on right knee. Bruise over her right knee on exam. No broken skin. Right foot with dislocation, fractures as above. Appreciate podiatry assistance. Reviewed perfusion scan which is low risk. Carmen Louie Nov 27, 2016 07:59 Parag Hunt MD Nov 27, 2016 19:48
[2016-11-27] MEDS: DOXAZOSIN MESYLATE 2 MG TAB PO SCH (08:38)
[2016-11-27] MEDS: PANTOPRAZOLE SOD 20 MG DELAYED RELEASE TAB PO SCH (08:39)
[2016-11-27] MEDS: ASPIRIN 325 MG TAB PO SCH (08:39)
[2016-11-27] MEDS: GABAPENTIN 300 MG CAP PO SCH ×2 (08:39→21:12)
[2016-11-27] MEDS: amLODIPine BESYLATE 5 MG TAB PO SCH (08:40)
[2016-11-27] MEDS: LISINOPRIL 20 MG TAB PO SCH (08:41)
[2016-11-27] MEDS: SODIUM CHLORIDE 0.9% FLUSH 10 ML FLUSH IV FLUSH SCH ×2 (08:42→21:11)
--- NOTE | 2016-11-27 09:04 | RADRPT ---
EXAM DATE/TIME: 11/27/2016 07:54 [facility] COMPARISON: TIBIA/FIBULA RIGHT (AP/LAT), November 27, 2016, 7:56. INDICATIONS : Right knee pain post fall MEDICAL HISTORY : Hypertension. Gastroesophageal reflux disease. Osteoarthritis. Cataracts.Vertigo. Esophageal strictur e. Dysphagia. Ulcer. Renal disease. SURGICAL HISTORY : Tonsillectomy. Hysterectomy. Total knee replacement, left. ENCOUNTER: Initial ACUITY: 1 day PAIN SCORE: 8/10 LOCATION: Right knee FINDINGS: There is irregular bony density towards the caudal aspect of the patella may be an avulsed fracture w ith slight soft tissue swelling at this site and injury to the patellar tendon is not excluded. CONCLUSION: Possible fracture of the inferior portion of the patella versus chronic changes involving the patella r tendon and chronic tendinitis. Salinas Polanco MD on November 27, 2016 at 8:39 Board Certified Radiologist. This report was verified electronically.
--- NOTE | 2016-11-27 09:05 | RADRPT ---
EXAM DATE/TIME: 11/27/2016 07:56 [facility] COMPARISON: No previous studies available for comparison. INDICATIONS : Right knee & ankle pain post fall. MEDICAL HISTORY : Hypertension. Gastroesophageal reflux disease. Osteoarthritis. Cataracts.Vertigo. Esophageal strictur e. Dysphagia. Ulcer. Renal disease. SURGICAL HISTORY : Tonsillectomy. Hysterectomy. Total knee replacement, left. ENCOUNTER: Initial ACUITY: 1 day PAIN SCORE: 5/10 LOCATION: Right tibia/fibula FINDINGS: There are areas of soft tissue prominence and bony density involving the inferior portion of the dos santos lla and patellar tendon discussed on the patient's knee radiographs. There is noted bony structures a ppear intact. CONCLUSION: Please refer to the knee radiograph for complete discussion. Salinas Polanco MD on November 27, 2016 at 9:03 Board Certified Radiologist. This report was verified electronically.
--- NOTE | 2016-11-27 09:07 | RADRPT ---
EXAM DATE/TIME: 11/27/2016 08:00 [facility] COMPARISON: No previous studies available for comparison. INDICATIONS : Right foot pain possible second digit dislocation post fall. MEDICAL HISTORY : Hypertension. Gastroesophageal reflux disease. Osteoarthritis. Cataracts.Vertigo. Esophageal strictur e. Dysphagia. Ulcer. Renal disease. SURGICAL HISTORY : Tonsillectomy. Hysterectomy. Total knee replacement, left. ENCOUNTER: Initial ACUITY: 1 day PAIN SCORE: 9/10 LOCATION: Right foot. FINDINGS: There are slightly displaced and angulated fractures of the distal third and fourth metatarsal bones. The second metatarsophalangeal joint is completely dislocated. Superimposed degenerative change is s een within multiple joints. CONCLUSION: Dislocated second MTP joint and fractures of the third and fourth distal metatarsal bones. Salinas Polanco MD on November 27, 2016 at 9:04 Board Certified Radiologist. This report was verified electronically.
[2016-11-27 09:53] LABS: AUTOMATED NEUTROPHIL # 5.8 TH/MM3 (1.8-7.7); BASOPHIL # 0.4 TH/MM3 (0-0.2); BASOPHIL % 4.8 % (0.0-2.0); EOSINOPHIL # 0.2 TH/MM3 (0-0.4); EOSINOPHIL % 1.9 % (0.0-4.0); HEMATOCRIT 34.9 % (35.0-46.0); HEMO FLAGS DIFF FINAL; LYMPH % 17.9 % (9.0-44.0); LYMPHOCYTE # 1.6 TH/MM3 (1.0-4.8); MEAN CELL VOLUME 92.9 FL (80.0-100.0); MEAN CORPUSCULAR HEMOGLOBIN 30.6 PG (27.0-34.0); MONO % 9.4 % (0.0-8.0); PLATELET COUNT 217 TH/MM3 (150-450); RED BLOOD COUNT 3.76 MIL/MM3 (4.00-5.30); RED CELL DISTRIBUTION WIDTH 12.7 % (11.6-17.2); WHITE BLOOD COUNT 8.8 TH/MM3 (4.0-11.0)
[2016-11-27 10:14] LABS: POTASSIUM 3.8 MEQ/L (3.5-5.1)
[2016-11-27] MEDS ORDERED: NALOXONE HCL 0.4 MG/ML AMP IV PRN (10:30)
[2016-11-27] MEDS ORDERED: MORPHINE SULFATE 4 MG/ML INJ IV PRN (10:30)
[2016-11-27] MEDS ORDERED: ACETAMINOPHEN 325 MG TAB PO PRN (10:30)
[2016-11-27] MEDS: ACETAMINOPHEN/HYDROcodone 325 MG/5 MG TAB PO PRN ×2 (10:40→15:32)
--- NOTE | 2016-11-27 12:50 | ECHRPT ---
Indication: CHEST PAIN CONCLUSIONS Normal left ventricular size. Mild concentric left ventricular hypertrophy. No regional wall motion abnormalities are present. Doppler parameters are consistent with impaired left ventricular relaxtion (grade 1 diastolic dysfun ction). The right ventriclar size is upper limits of normal. Diffuse calcification of the aortic valve. No aortic valve stenosis. Mild aortic valve regurgitation. There is trace tricuspid valve regurgitation. Normal estimated pulmonary pressures. There is a small pericardial effusion present. No hemodynamically significant echocardiographic features were observed (no pre-tamponade physiology). BP: 113 / 72 HR: 86 Rhythm: Sinus MEASUREMENTS (Male / Female) Normal Values Technical Quality:Good 2D ECHO LV Diastolic Diameter PLAX 4.2 cm 4.2 - 5.9 / 3.9 - 5.3 cm LV Systolic Diameter PLAX 2.6 cm IVS Diastolic Thickness 1.3 cm 0.6 - 1.0 / 0.6 - 0.9 cm LVPW Diastolic Thickness 1.2 cm 0.6 - 1.0 / 0.6 - 0.9 cm LV Relative Wall Thickness 0.6 RV Internal Dim ED PLAX 2.6 cm LVOT Diameter 2.0 cm LA Systolic Diameter LX 2.1 cm 3.0 - 4.0 / 2.7 - 3.8 cm M-MODE Aortic Root Diameter MM 0.7 cm DOPPLER AV Peak Velocity 189.0 cm/s AV Peak Gradient 14.3 mmHg AI Peak Velocity 466.0 cm/s AI Peak Gradient 86.9 mmHg AI Pressure Half Time 436.0 ms LVOT Peak Velocity 134.0 cm/s LVOT Peak Gradient 7.2 mmHg AV Area Cont Eq pk 2.2 cm MV Area PHT 3.8 cm Mitral E Point Velocity 57.8 cm/s Mitral A Point Velocity 94.3 cm/s Mitral E to A Ratio 0.6 TR Peak Velocity 246.0 cm/s TR Peak Gradient 24.0 mmHg PV Peak Velocity 105.0 cm/s PV Peak Gradient 4.4 mmHg FINDINGS LEFT VENTRICLE The left ventricular systolic function is normal with an estimated ejection fraction in the range of 60-65%. Normal left ventricular size. Mild concentric left ventricular hypertrophy. No regional wall motion abnormalities are present. Doppler parameters are consistent with impaired left ventricular relaxtion (grade 1 diastolic dysfun ction). RIGHT VENTRICLE The right ventriclar size is upper limits of normal. LEFT ATRIUM The left atrial size is normal. RIGHT ATRIUM The right atrial size is normal. ATRIAL SEPTUM Normal atrial septal thickness without atrial level shunting by limited color doppler interrogation. AORTA The aortic root and proximal ascending aorta are normal in size on limited imaging. MITRAL VALVE Structurally normal mitral valve. No mitral valve stenosis or regurgitation. AORTIC VALVE Diffuse calcification of the aortic valve. No aortic valve stenosis. Mild aortic valve regurgitation. TRICUSPID VALVE There is trace tricuspid valve regurgitation. Normal estimated pulmonary pressures. VESSELS The inferior vena cava is normal in size. PERICARDIUM There is a small pericardial effusion present. No hemodynamically significant echocardiographic features were observed (no pre-tamponade physiology). Justen Preciado MD, FACC (Electronically Signed) Final Date:27 November 2016 12:49
--- NOTE | 2016-11-27 14:02 | RADRPT ---
EXAM DATE/TIME: 11/27/2016 12:41 [facility] COMPARISON: No previous studies available for comparison. INDICATIONS : Right chest pain for 1 day and right leg pain for several weeks. Angina. DOSE: 25.4 mCi Tc99m Myoview at stress. 8.2 mCi Tc99m Myoview at rest. 0.4 mg Lexiscan STRESS SYMPTOMS: None noted. EJECTION FRACTION: 67% MEDICAL HISTORY : Gastroesophageal reflux disease. Hypertension. Renal failure, chronic. SURGICAL HISTORY : Tonsillectomy. Total knee replacement, left. Hysterectomy. ENCOUNTER: Initial ACUITY: 2 days PAIN SCALE: 7/10 LOCATION: Right chest TECHNIQUE: The patient underwent pharmacologic stress with infusion of prescribed dose. Continuous ECG tracing was monitored during stress. Gated SPECT imaging was performed after stress and conventional SPECT i maging was performed at rest. The examination was performed on a SPECT/CT scanner, both attenuation and non-corrected datasets were reviewed. FINDINGS: DISTRIBUTION: The maximum perfused segment at stress is in the anterior wall. PERFUSION STUDY: The pattern of perfusion at stress is within normal limits. GATED STUDY: There is intact wall motion and thickening without hypokinetic or dyskinetic segments. CONCLUSION: Unremarkable study. RISK CATEGORY: Low (<1% Annual Mortality Rate) Salinas Polanco MD on November 27, 2016 at 13:59 Board Certified Radiologist. This report was verified electronically.
[2016-11-27] MEDS ORDERED: REGADENOSON INJ 0.4 MG/5 ML SYR IV ONE (15:32)
--- NOTE | 2016-11-27 16:35 | TR ---
Date Performed: 11/27/2016 Time Performed: 13:05:29 DOCTOR: Kirill Bach DRUG LIST: CLINICAL HISTORY: REASON FOR TEST: Chest pain REASON FOR ENDING: OBSERVATION: CONCLUSION: Lexiscan stress test was performed under standard four minute protocol. Radionuclid e was injected one minute prior to ending the test. No electrocardiographic abormalities were present to suggest ischemia. Nuclear imaging and interpretation are pending. COMMENTS:
--- NOTE | 2016-11-27 17:51 | PD.CONS ---
History of Present Illness Service Podiatry Consult Requested By Reason for Consult R 2nd toe dislocation and metatarsal fractures Primary Care Physician Navin Castillo DO Diagnoses: History of Present Illness Patient relates a fall this morning sustaining injury to her R foot and R knee. She has been unable to bear weight RLE without severe pain. She states she is on blood thinners Past Family Social History Allergies: Coded Allergies: No Known Allergies (Verified , 11/25/16) Past Medical History Hypertension Osteoarthritis of the knees Peripheral neuropathy Depression Chronic kidney disease stage III GERD History of esophageal stricture Osteoporosis Past Surgical History Left knee arthroplasty Eye surgery Hysterectomy Tonsillectomy Active Ordered Medications Current Medications Medications (Trade) Dose Ordered Sig/Izzy Route Start Time Stop Time Status Last Admin (NS Flush) 2 ml UNSCH PRN IV FLUSH 11/25/16 15:45 (NS Flush) 2 ml BID IV FLUSH 11/25/16 21:00 11/27/16 08:42 (Zofran Inj) 4 mg Q6H PRN IV 11/25/16 15:45 (Nitrostat Sl) 0.4 mg Q5M PRN SL 11/25/16 15:45 (Aspirin) 325 mg DAILY PO 11/26/16 09:00 11/27/16 08:39 (Norvasc) 5 mg DAILY PO 11/26/16 09:00 11/27/16 08:40 (Lipitor) 40 mg HS PO 11/25/16 21:00 11/26/16 21:12 (CeleXA) 10 mg HS PO 11/25/16 21:00 11/26/16 21:12 (Cardura) 2 mg DAILY PO 11/26/16 09:00 11/27/16 08:38 (Neurontin) 300 mg BID PO 11/25/16 21:00 11/27/16 08:39 (Isoptin Sr) 240 mg HS PO 11/25/16 21:00 11/26/16 21:12 (Prinivil) 40 mg DAILY PO 11/26/16 09:00 11/27/16 08:41 (Protonix) 20 mg DAILY PO 11/26/16 09:00 11/27/16 08:39 (Tylenol) 650 mg Q6H PRN PO 11/27/16 10:30 ([place] 5-325 Mg) 1 tab Q6H PRN PO 11/27/16 10:30 11/27/16 15:32 ([place] 10-325 Mg) 1 tab Q6H PRN PO 11/27/16 10:30 (Morphine Inj) 2 mg Q4H PRN IV 11/27/16 10:30 (Narcan Inj) 0.4 mg UNSCH PRN IV 11/27/16 10:30 Family History Social History No alcohol use. No history of tobacco use. Physical Exam Vital Signs Vital Signs Date Time Temp Pulse Resp B/P (MAP) Pulse Ox O2 Delivery O2 Flow Rate FiO2 11/27/16 16:00 97.4 86 18 124/67 (86) 95 11/27/16 12:00 97.4 74 18 136/75 (95) 95 11/27/16 09:30 97.4 73 19 153/78 (103) 94 11/27/16 08:30 97.9 73 18 128/67 (87) 97 11/27/16 08:10 97 Nasal Cannula 21 11/27/16 08:00 75 11/27/16 07:30 86 20 94/63 (73) 93 11/27/16 04:00 98.8 63 16 113/72 (86) 94 11/27/16 00:00 97.6 62 16 133/71 (91) 95 11/26/16 23:00 86 11/26/16 20:45 93 21 11/26/16 20:00 97.6 66 16 115/63 (80) 93 11/26/16 18:00 98.0 67 18 116/68 (84) 97 Physical Exam palpable pedal pulses. R 2nd digit dorsally and laterally dislocated at MTP joint level. Diffuse dorsal forefoot edema and ecchymosis. Pain diffusely to R forefoot. Compartments soft. No open lesions noted Laboratory Laboratory Tests Test 11/27/16 09:50 White Blood Count 8.8 Red Blood Count 3.76 Hemoglobin 11.5 Hematocrit 34.9 Mean Corpuscular Volume 92.9 Mean Corpuscular Hemoglobin 30.6 Mean Corpuscular Hemoglobin Concent 33.0 Red Cell Distribution Width 12.7 Platelet Count 217 Mean Platelet Volume 7.5 Neutrophils (%) (Auto) 66.0 Lymphocytes (%) (Auto) 17.9 Monocytes (%) (Auto) 9.4 Eosinophils (%) (Auto) 1.9 Basophils (%) (Auto) 4.8 Neutrophils # (Auto) 5.8 Lymphocytes # (Auto) 1.6 Monocytes # (Auto) 0.8 Eosinophils # (Auto) 0.2 Basophils # (Auto) 0.4 CBC Comment DIFF FINAL Differential Comment Blood Urea Nitrogen 21 Creatinine 1.20 Random Glucose 88 Calcium Level 8.9 Sodium Level 136 Potassium Level 3.8 Chloride Level 102 Carbon Dioxide Level 27.0 Anion Gap 7 Estimat Glomerular Filtration Rate 43 Result Diagram: 11/27/16 0950 11/27/1650 Imaging Last Impressions Myocardial Perfusion Scan Nuc Med 11/27/16906 Signed Impressions: Service Date/Time: November 12:41 - CONCLUSION: Unremarkable study. RISK CATEGORY: Low (<1%% Annual Mortality Rate) Salinas Polanco MD Tibia/Fibula X-Ray 11/27/16732 Signed Impressions: Service Date/Time: November 07:56 - CONCLUSION: Please refer to the knee radiograph for complete discussion. Salinas Polanco MD Knee X-Ray 11/27/16732 Signed Impressions: Service Date/Time: November 07:54 - CONCLUSION: Possible fracture of the inferior portion of the patella versus chronic changes involving the patellar tendon and chronic tendinitis. Salinas Polanco MD Foot X-Ray 11/27/16732 Signed Impressions: Service Date/Time: November 08:00 - CONCLUSION: Dislocated second MTP joint and fractures of the third and fourth distal metatarsal bones. Salinas Polanco MD Lung Scan- Nuclear Medicine 11/25/16 1210 Signed Impressions: Service Date/Time: Friday, November 25, 2016 12:56 - CONCLUSION: 1. Low probability for pulmonary embolus. 2. Cardiomegaly Garrett Yeager MD Lower Extremity Ultrasound 11/25/166 Signed Impressions: Service Date/Time: Friday, November 25, 2016 12:09 - CONCLUSION: No evidence of DVT. Nance's cyst. Cornelio Chu MD Chest X-Ray 11/25/16 1116 Signed Impressions: Service Date/Time: Friday, November 25, 2016 11:25 - CONCLUSION: Blunted left lateral costophrenic angle as above. Cornelio Chu MD Awaiting post-reduction xray R foot Assessment and Plan Assessment and Plan Dislocation R 2nd MTP joint R foot Patient agreed to attempt relocation. 2nd MTP joint area anesthetized with 3mL 2% lidocaine plain, followed by attempt at relocation of joint. Joint was reduced, then continued to slightly move back to dislocated position. Shakila tape applied to 1st/2nd digits to maintain reduction. Post-reduction x ray ordered R foot Will determine further treatment based on xray Discussed possibility of open procedure required to achieve continued reduction vs continued shakila taping and follow up. Will discuss with patient after xray Nonweightbearing R foot. Splint ordered 3rd/4th metatarsal neck fractures R foot Possible percutaneous pinning if surgery indicated for 2nd MTP joint, but alignment acceptable. Nonweightbearing R foot Elier Sky DPM Nov 27, 2016 17:51
--- NOTE | 2016-11-27 18:36 | RADRPT ---
EXAM DATE/TIME: 11/27/2016 18:13 [facility] COMPARISON: FOOT RIGHT COMPLETE ([id number]), November 27, 2016, 8:00. INDICATIONS : Post reduction right foot. MEDICAL HISTORY : Hypertension. SURGICAL HISTORY : Tonsillectomy. Total knee replacement, right. ENCOUNTER: Subsequent ACUITY: 1 day PAIN SCORE: 7/10 LOCATION: Right foot FINDINGS: 3 views of the right foot demonstrate diffusely undermineralized bones. Lisfranc joint is intact. The second digit MTP joint dislocation has been reduced. The fractures of the distal third and fourth me tatarsal necks are stable. No soft tissue abnormality is identified. There is osteoarthritis with mil d hallux valgus deformity at the first MTP joint. CONCLUSION: 1. Reduction of the second digit dislocation. 2. Third and fourth distal metatarsal fractures are stable. Salvatore Miranda MD on November 27, 2016 at 18:33 Board Certified Radiologist. This report was verified electronically.
[2016-11-27] MEDS: VERAPAMIL HCL 240 MG SUSTAINED RELEASE TAB PO SCH (21:11)
[2016-11-27] MEDS: ATORVASTATIN 40 MG TAB PO SCH (21:12)
[2016-11-27] MEDS: CITALOPRAM HYDROBROMIDE 20 MG TAB PO SCH (21:12)
[2016-11-27] MEDS: ACETAMINOPHEN/HYDROcodone 325 MG/10 MG TAB PO PRN (21:12)
[2016-11-28 00:36] VITALS: BP 111/62; PULSE 88; RESP 18; TEMP 97.6; O2SAT 92
[2016-11-28 05:06] VITALS: BP 113/64; PULSE 78; RESP 20; TEMP 98.7; O2SAT 92
[2016-11-28] MEDS: ACETAMINOPHEN/HYDROcodone 325 MG/10 MG TAB PO PRN (05:17)
[2016-11-28 06:30] VITALS: PULSE 78
[2016-11-28 08:00] VITALS: O2SAT 93
[2016-11-28 08:17] VITALS: BP 122/57; PULSE 86; RESP 19; TEMP 98.8; O2SAT 93
[2016-11-28] MEDS: LISINOPRIL 20 MG TAB PO SCH (09:40)
[2016-11-28] MEDS: GABAPENTIN 300 MG CAP PO SCH (09:40)
[2016-11-28] MEDS: DOXAZOSIN MESYLATE 2 MG TAB PO SCH (09:40)
[2016-11-28] MEDS: amLODIPine BESYLATE 5 MG TAB PO SCH (09:40)
[2016-11-28] MEDS: ASPIRIN 325 MG TAB PO SCH (09:40)
[2016-11-28] MEDS: PANTOPRAZOLE SOD 20 MG DELAYED RELEASE TAB PO SCH (09:40)
[2016-11-28] MEDS: SODIUM CHLORIDE 0.9% FLUSH 10 ML FLUSH IV FLUSH SCH (09:41)
--- NOTE | 2016-11-28 11:48 | RADRPT ---
EXAM DATE/TIME: 11/28/2016 11:08 [facility] COMPARISON: FOOT RIGHT COMPLETE ([id number]), November 27, 2016, 18:13. INDICATIONS : Post reduction right foot. MEDICAL HISTORY : Hypertension. SURGICAL HISTORY : Total knee replacement, right. ENCOUNTER: Subsequent ACUITY: 2 days PAIN SCORE: 1/10 LOCATION: Right Foot FINDINGS: 3 views of the right foot with posterior splint in place documents hallux valgus with osteoarthritis at the first MTP joint. The overlying cast/splint material obscures bony detail. The third and fourth distal metatarsal fractures are not well appreciated. No significant interval change is appreciated. CONCLUSION: No interval change is appreciated compared to the prior study from yesterday. The fractures are not w ell-visualized due to the overlying cast material/splint. Salvatore Miranda MD on November 28, 2016 at 11:45 Board Certified Radiologist. This report was verified electronically.
[2016-11-28 12:19] VITALS: BP 83/49; PULSE 78; RESP 19; TEMP 98.9; O2SAT 91
[2016-11-28] MEDS ORDERED: WALKER WHEELS/F1 MIS (12:37)
[2016-11-28] MEDS ORDERED: BEDSIDE COMMODE1 MI1 (12:37)
[2016-11-28] MEDS ORDERED: WHEEMIS3 (12:37)
--- NOTE | 2016-11-28 12:41 | HHI.FF ---
Face to Face Verification Diagnosis: (1) Right knee injury (2) Multiple closed fractures of right foot (3) Closed dislocation of metatarsophalangeal (joint) (4) Right groin pain Physical Therapy Order: Evaluate and Treat, Improve ambulation, Strength and gait training Instructions: Non-weightbearing Right foot I have seen patient Janeth Jarquin on 11/28/16. My clinical findings support the need for the requested home health care services because: Ltd mobility - disease progression Limited ability to care for self High risk of falls (due to RLE injuries) I certify that my clinical findings support that this patient is homebound because: Unsafe to leave home unassisted Unable to use public transportation Camren Louie Nov 28, 2016 12:41
--- NOTE | 2016-11-28 13:52 | PD.POD ---
Subjective Podiatric Problems R 2nd toe dislocation, s/p closed reduction 11/27/16 3rd, 4th, 5th metatarsal head/neck fractures Past Med/Surg/Social History Social History Smoking Status: Never Smoker Objective Vital Signs Vital Signs Date Time Temp Pulse Resp B/P (MAP) Pulse Ox O2 Delivery O2 Flow Rate FiO2 11/28/16 12:19 98.9 78 19 83/49 (60) 91 11/28/16 08:17 98.8 86 19 122/57 (78) 93 11/28/16 08:00 93 21 11/28/16 06:30 78 11/28/16 05:06 98.7 78 20 113/64 (80) 92 11/28/16 00:36 97.6 88 18 111/62 (78) 92 11/27/16 20:30 71 11/27/16 20:30 95 21 11/27/16 20:00 98.0 75 16 120/68 (85) 96 11/27/16 20:00 71 11/27/16 16:00 97.4 86 18 124/67 (86) 95 Coded Allergies: No Known Allergies (Verified , 11/25/16) Objective Remarks Post-reduction foot xray shows reduction of 2nd MTP joint dislocation. 3rd/4th/5th distal metatarsal fractures visualized and in acceptable alignment. - Last Impressions Foot X-Ray 11/28/16 0000 Signed Impressions: Service Date/Time: Monday, November 28, 2016 11:08 - CONCLUSION: No interval change is appreciated compared to the prior study from yesterday. The fractures are not well-visualized due to the overlying cast material/splint. Salvatore Miranda MD Myocardial Perfusion Scan Nuc Med 11/27/16 0907 Signed Impressions: Service Date/Time: November 12:41 - CONCLUSION: Unremarkable study. RISK CATEGORY: Low (<1%% Annual Mortality Rate) Salinas Polanco MD Tibia/Fibula X-Ray 11/27/16732 Signed Impressions: Service Date/Time: November 07:56 - CONCLUSION: Please refer to the knee radiograph for complete discussion. Salinas Polanco MD Knee X-Ray 11/27/1633 Signed Impressions: Service Date/Time: November 07:54 - CONCLUSION: Possible fracture of the inferior portion of the patella versus chronic changes involving the patellar tendon and chronic tendinitis. Salinas Polanco MD Lung Scan-V Nuclear Medicine 11/25/16 1210 Signed Impressions: Service Date/Time: Friday, November 25, 2016 12:56 - CONCLUSION: 1. Low probability for pulmonary embolus. 2. Cardiomegaly Garrett Yeager MD Lower Extremity Ultrasound 11/25/16 1116 Signed Impressions: Service Date/Time: Friday, November 25, 2016 12:09 - CONCLUSION: No evidence of DVT. Nance's cyst. Cornelio Chu MD Chest X-Ray 11/25/16 1116 Signed Impressions: Service Date/Time: Friday, November 25, 2016 11:25 - CONCLUSION: Blunted left lateral costophrenic angle as above. Cornelio Chu MD Physical Exam Remarks in splint R with R 2nd toe shakila taped to R hallux Assessment & Plan A/P R 2nd toe dislocation, s/p closed reduction 11/27/16 3rd, 4th, 5th metatarsal head/neck fractures Continue NWB in splint RLE Follow up in clinic, [facility], 1 week [id number] Keep shakila tape intact to maintain reduction of toe OK for d/c from podiatry Elier Sky DPM Nov 28, 2016 13:52
--- NOTE | 2016-12-01 15:55 | HHI.PR ---
Subjective Remarks Patient seen the morning of 11/28. Says she is feeling well. Reports pain is under control. Denies any chest pain or shortness of breath. Feels like going home. Objective Result Diagram: 11/27/16 0950 11/27/16 0950 Objective Remarks GENERAL: Patient sitting up in bed. Appears comfortable. SKIN: Warm and dry. HEAD: Normocephalic. EYES: No scleral icterus. No injection or drainage. NECK: Supple, trachea midline. No JVD. CARDIOVASCULAR: Regular rate and rhythm without murmurs, gallops, or rubs. RESPIRATORY: Breath sounds equal bilaterally. No accessory muscle use. GASTROINTESTINAL: Abdomen soft, non-tender, nondistended. MUSCULOSKELETAL: No cyanosis, or edema. Right lower extremity bandaged. Clean dry and intact. Right knee braced. BACK: Nontender without obvious deformity. No CVA tenderness. A/P Assessment and Plan Fall: Patient had a mechanical fall 11/27 injuring her right leg. There appears to be deformity to her right second toe. The patient did experience lightheadedness and significant hypotension after the event likely vasovagal from the trauma/pain which did subsequently improve without intervention. No new injury to the right hip. X-rays reveal dislocation at the right 2nd MTP joint and fractures to the distal third and fourth metatarsals. She additionally has a possible fracture to the inferior right patella. [place] ordered with breakthrough morphine prn as patient in pain and BP now starting to increase. Orthopedics consulted. I spoke with Dr. Catie Perez's PA who has reviewed R knee x-ray stating it appears chronic. -Recommends knee immobilizer and follow up with ortho in 1 week. -Podiatry was consulted for right foot fractures with further management as below. //Right second toe dislocation status post closed reduction 11/27/16. //Third, fourth, fifth metatarsal head/neck fractures -[facility] pod[facility]ry assistance. Continue nonweightbearing and splint right lower extremity. -With podiatry in 1 week. //Intermittent retrosternal chest pain ongoing for the past 3 weeks in a patient with history of hypertension, chronic kidney disease and familial history of coronary artery disease - Patient was placed in chest pain center. Serial cardiac enzymes negative. EKGs reveals marked left axis deviation but no new ischemic changes. Chest x-ray shows blunted left costophrenic angle which could be effusion vs scarring. Given her reported history of cardiomyopathy echocardiogram ordered. Echo with mild concentric left ventricular hypertrophy, impaired left ventricular relaxation (grade 1 diastolic dysfunction), right ventricular size is upper limits of normal, diffuse calcification of the aortic valve, mild aortic valve regurgitation, trace tricuspid valve regurgitation, and small pericardial effusion present, but no pre-tamponade. Patient was unable to have Lexiscan performed yesterday due to VQ scan performed the day before. Lexiscan ordered today and normal. Received maintenance IV fluids since NPO. -Chest pain improved. //Cramping right groin pain -Chronic. - may be related to her right knee osteoarthritic pain, she is due for an arthroplasty of that knee in January. Continue pain control. Follow-up with PCP and orthopedic physician. //Trace pedal edema. Doppler ultrasound was negative for DVT. Suspect this is dependent edema. Echocardiogram pending. //Hypertension - continue home medications //Osteoarthritis of the knees //Peripheral neuropathy - continue Neurontin //Depression - continue Celexa //Chronic kidney disease stage III - Cr stable at 1.20 today. //Mild hypokalemia on 11/25. Resolved today. //GERD, History of esophageal stricture - continue PPI. //DVT prophylaxis with SCDs Discharge Planning discharge home with home health service. Parag Hunt MD Dec 01, 2016 15:55
--- NOTE | 2016-12-01 15:59 | HHI.DS ---
Discharge Summary Admission Date Nov 25, 2016 at 15:31 Discharge Date: Nov 28, 2016 Admitting Diagnosis atypical chest pain (1) Right groin pain ICD Code: R10.31 - Right lower quadrant pain (2) CKD (chronic kidney disease) stage 3, GFR 30-59 ml/min ICD Code: N18.3 - CKD (chronic kidney disease) stage 3, GFR 30-59 ml/min Status: Chronic (3) Atypical chest pain ICD Code: R07.89 - Other chest pain Status: Acute (4) HTN (hypertension) ICD Code: I10 - HTN (hypertension) Status: Chronic Procedures Right second toe dislocation status post closed reduction 11/27. Lexiscan stress. Brief History - From Admission This is a very pleasant 81 year-old female patient with past medical history of hypertension, chronic kidney disease and osteoarthritis who presented to the ER today with right groin pain which was cramping in nature. However she also has been having some intermittent retrosternal chest pain which is sharp and pressure-like and radiates to the back which has been going on for the past 3 weeks. The symptoms occur at rest and lasts about 20 minutes and then resolve. No nausea, diaphoresis or shortness of breath associated. No radiation. Symptoms moderate. The patient has additionally been having intermittent right groin pain for the past month however last night and today it has been quite severe. The patient does have osteoarthritis of the right knee and is scheduled to undergo a right knee arthroplasty in January. The patient denies any cardiac history. She has never had a stress test. She states that she had an echocardiogram 2 years ago and was told that she had a cardiomyopathy, but she states that this was never followed up and she has not seen a maintenance trainer. The patient also notes that she's been having some pedal edema more so in the right foot. She does have a brother who had a myocardial infarction in his older years. The patient has no tobacco use history. CBC/BMP: 11/27/16 0950 11/27/16 0950 Imaging Last Impressions Foot X-Ray 11/28/16 0000 Signed Impressions: Service Date/Time: Monday, November 28, 2016 11:08 - CONCLUSION: No interval change is appreciated compared to the prior study from yesterday. The fractures are not well-visualized due to the overlying cast material/splint. Salvatore Miranda MD Myocardial Perfusion Scan [facility] 11/27/16 0907 Signed Impressions: Service Date/Time: November 12:41 - CONCLUSION: Unremarkable study. RISK CATEGORY: Low (<1%% Annual Mortality Rate) Salinas Polanco MD Tibia/Fibula X-Ray 11/27/16732 Signed Impressions: Service Date/Time: November 07:56 - CONCLUSION: Please refer to the knee radiograph for complete discussion. Salinas Polanco MD Knee X-Ray 11/27/16732 Signed Impressions: Service Date/Time: November 07:54 - CONCLUSION: Possible fracture of the inferior portion of the patella versus chronic changes involving the patellar tendon and chronic tendinitis. Salinas Polanco MD Lung Scan- Nuclear Medicine 11/25/16 1210 Signed Impressions: Service Date/Time: Friday, November 25, 2016 12:56 - CONCLUSION: 1. Low probability for pulmonary embolus. 2. Cardiomegaly Garrett Yeager MD Lower Extremity Ultrasound 11/25/16 1116 Signed Impressions: Service Date/Time: Friday, November 25, 2016 12:09 - CONCLUSION: No evidence of DVT. Nance's cyst. Cornelio Chu MD Chest X-Ray 11/25/16 1116 Signed Impressions: Service Date/Time: Friday, November 25, 2016 11:25 - CONCLUSION: Blunted left lateral costophrenic angle as above. Cornelio Chu MD PE at Discharge Post-reduction foot xray shows reduction of 2nd MTP joint dislocation. 3rd/4th/5th distal metatarsal fractures visualized and in acceptable alignment. - Last Impressions Foot X-Ray 11/28/16 0000 Signed Impressions: Service Date/Time: Monday, November 28, 2016 11:08 - CONCLUSION: No interval change is appreciated compared to the prior study from yesterday. The fractures are not well-visualized due to the overlying cast material/splint. Salvatore Miranda MD Myocardial Perfusion Scan Nuc Med 11/27/16 0907 Signed Impressions: Service Date/Time: November 12:41 - CONCLUSION: Unremarkable study. RISK CATEGORY: Low (<1%% Annual Mortality Rate) Salinas Polanco MD Tibia/Fibula X-Ray 11/27/16 0733 Signed Impressions: Service Date/Time: November 07:56 - CONCLUSION: Please refer to the knee radiograph for complete discussion. Salinas Polanco MD Knee X-Ray 11/27/1633 Signed Impressions: Service Date/Time: November 07:54 - CONCLUSION: Possible fracture of the inferior portion of the patella versus chronic changes involving the patellar tendon and chronic tendinitis. Salinas Polanco MD Lung Scan-VQ Nuclear Medicine 11/25/16 1210 Signed Impressions: Service Date/Time: Friday, November 25, 2016 12:56 - CONCLUSION: 1. Low probability for pulmonary embolus. 2. Cardiomegaly Garrett Yeager MD Lower Extremity Ultrasound 11/25/16 1116 Signed Impressions: Service Date/Time: Friday, November 25, 2016 12:09 - CONCLUSION: No evidence of DVT. Nance's cyst. Cornelio Chu MD Chest X-Ray 11/25/16 1116 Signed Impressions: Service Date/Time: Friday, November 25, 2016 11:25 - CONCLUSION: Blunted left lateral costophrenic angle as above. Cornelio Chu MD Hospital Course Patient is an observation secondary to chest pain. Patient was placed in chest pain center. Serial cardiac enzymes negative. EKGs reveals marked left axis deviation but no new ischemic changes. Chest x-ray shows blunted left costophrenic angle which could be effusion vs scarring. Given her reported history of cardiomyopathy echocardiogram ordered. Echo with mild concentric left ventricular hypertrophy, impaired left ventricular relaxation (grade 1 diastolic dysfunction), right ventricular size is upper limits of normal, diffuse calcification of the aortic valve, mild aortic valve regurgitation, trace tricuspid valve regurgitation, and small pericardial effusion present, but no pre-tamponade. Patient was unable to have Lexiscan performed 11/26 due to VQ scan performed the day before. Lexiscan ordered and normal. During hospitalization, unfortunately she had a mechanical fall 11/27 injuring her right leg. Right knee imaging with no acute findings, however Ortho Evra recommended placing right knee in brace and follow-up in outpatient clinic. Right foot with third, fourth, fifth metatarsal head/neck fractures, as well as right second toe dislocation which underwent closed reduction 11/27 by podiatry. This was splinted. Will be nonweightbearing to right lower extremity, follow- up with orthopedics, as well as podiatry in 1 week. This was discharged home with home health. For problem-based summary for most recent progress note, please see below: ------- Fall: Patient had a mechanical fall 11/27 injuring her right leg. There appears to be deformity to her right second toe. The patient did experience lightheadedness and significant hypotension after the event likely vasovagal from the trauma/pain which did subsequently improve without intervention. No new injury to the right hip. X-rays reveal dislocation at the right 2nd MTP joint and fractures to the distal third and fourth metatarsals. She additionally has a possible fracture to the inferior right patella. [place] ordered with breakthrough morphine prn as patient in pain and BP now starting to increase. Orthopedics consulted. I spoke with Dr. Catie Perez's PA who has reviewed R knee x-ray stating it appears chronic. -Recommends knee immobilizer and follow up with ortho in 1 week. -Podiatry was consulted for right foot fractures with further management as below. //Right second toe dislocation status post closed reduction 11/27/16. //Third, fourth, fifth metatarsal head/neck fractures -appreciate podiatry assistance. Continue nonweightbearing and splint right lower extremity. -With podiatry in 1 week. //Intermittent retrosternal chest pain ongoing for the past 3 weeks in a patient with history of hypertension, chronic kidney disease and familial history of coronary artery disease - Patient was placed in chest pain center. Serial cardiac enzymes negative. EKGs reveals marked left axis deviation but no new ischemic changes. Chest x-ray shows blunted left costophrenic angle which could be effusion vs scarring. Given her reported history of cardiomyopathy echocardiogram ordered. Echo with mild concentric left ventricular hypertrophy, impaired left ventricular relaxation (grade 1 diastolic dysfunction), right ventricular size is upper limits of normal, diffuse calcification of the aortic valve, mild aortic valve regurgitation, trace tricuspid valve regurgitation, and small pericardial effusion present, but no pre-tamponade. Patient was unable to have Lexiscan performed yesterday due to VQ scan performed the day before. Lexiscan ordered and normal. . -Chest pain improved. //Cramping right groin pain -Chronic. - may be related to her right knee osteoarthritic pain, she is due for an arthroplasty of that knee in January. Continue pain control. Follow-up with PCP and orthopedic physician. //Trace pedal edema. Doppler ultrasound was negative for DVT. Suspect this is dependent edema. Echocardiogram pending. //Hypertension - continue home medications //Osteoarthritis of the knees //Peripheral neuropathy - continue Neurontin //Depression - continue Celexa //Chronic kidney disease stage III - Cr stable at 1.20 today. //Mild hypokalemia on 11/25. Resolved today. //GERD, History of esophageal stricture - continue PPI. //DVT prophylaxis with SCDs Pt Condition on Discharge: Good Discharge Disposition: Disch w/ Home Health Serv Discharge Time: > 30 minutes Discharge Instructions DIET: Follow Instructions for: Heart Healthy Diet Activities you can perform: Non Weight Bearing Other Activity Instructions: Nonweightbearing right foot. Follow up Referrals: Orthopedics - 2 Weeks PCP Follow-up - 1 Week with Navin Castillo DO Podiatry - 1 Week with Elier Sky DPM New Medications: Bedside Commode (Bedside Commode) 1 Mis Mis EA .ROUTE DIRECTED, #1 Walker with Front Wheels (Walker with Front Wheels) 1 Mis Mis EA .ROUTE DIRECTED, #1 0 Refills Wheelchair Elevated Leg (Wheelchair Elevated Leg) 1 Mis Mis EA .ROUTE DIRECTED, #1 0 Refills Continued Medications: Amlodipine (Amlodipine) 5 Mg Tab 5 MG PO DAILY for Blood Pressure Management, #30 TAB 0 Refills Aspirin (Aspirin) 325 Mg Tab 325 MG PO DAILY, #30 TAB 0 Refills Atorvastatin (Atorvastatin) 40 Mg Tab 40 MG PO HS for Cholesterol Management, #30 TAB 0 Refills Calcium Carbonate-Vitamin D (Calcium 500 + D) 500-125 Mg-Unit Tab 1 TAB PO DAILY, TAB Citalopram (Citalopram) 10 Mg Tab 10 MG PO HS for Control Depression, #30 TAB 0 Refills Doxazosin (Doxazosin) 2 Mg Tab 2 MG PO DAILY, #30 TAB 0 Refills Gabapentin (Gabapentin) 300 Mg Cap 300 MG PO BID, #60 CAP 0 Refills Lisinopril (Lisinopril) 40 Mg Tab 40 MG PO DAILY for Blood Pressure Management, #30 TAB 0 Refills Omeprazole (Omeprazole) 20 Mg Cap 20 MG PO DAILY Vit W/ Ferrous Fumara ( Low Iron 27-0.8 mg) 1 Tab Tab Verapamil ER 24 HR (Verapamil ER 24 HR) 240 Mg Tab 240 MG PO HS, #30 TAB 0 Refills Discontinued Medications: Alendronate (Alendronate) 70 Mg Tab 70 MG PO Q7D for Osteporosis Treatment, #4 TAB 0 Refills Parag Hunt MD Dec 01, 2016 15:59
== END 2016-11-28 17:38 | disposition home or self-care (01) ==
LOC: PHED 10:49 → PHEDA 15:31 → PH3A 17:21
PROVIDERS: ADMIT Internal Medicine; ATTEND Internal Medicine
DX: R07.89 Other chest pain (principal); S92.331A Displaced fracture of third metatarsal bone, right foot, initial encounter for closed fracture; S92.341A Displaced fracture of fourth metatarsal bone, right foot, initial encounter for closed fracture; S92.351A Displaced fracture of fifth metatarsal bone, right foot, initial encounter for closed fracture; S93.104A Unspecified dislocation of right toe(s), initial encounter; R42 Dizziness and giddiness; I95.9 Hypotension, unspecified; R10.31 Right lower quadrant pain; M25.571 Pain in right ankle and joints of right foot; R60.0 Localized edema; R94.31 Abnormal electrocardiogram [ECG] [EKG]; M25.551 Pain in right hip; E87.6 Hypokalemia; I13.10 Hypertensive heart and chronic kidney disease without heart failure, with stage 1 through stage 4 chronic kidney disease, or unspecified chronic kidney disease; N18.3 Chronic kidney disease, stage 3 (moderate); I42.9 Cardiomyopathy, unspecified; I25.119 Atherosclerotic heart disease of native coronary artery with unspecified angina pectoris; I35.1 Nonrheumatic aortic (valve) insufficiency; G62.9 Polyneuropathy, unspecified; M51.26 Other intervertebral disc displacement, lumbar region; K21.9 Gastro-esophageal reflux disease without esophagitis; F32.9 Major depressive disorder, single episode, unspecified; F41.9 Anxiety disorder, unspecified; M71.21 Synovial cyst of popliteal space [Baker], right knee; M17.0 Bilateral primary osteoarthritis of knee; M81.0 Age-related osteoporosis without current pathological fracture; Z79.82 Long term (current) use of aspirin; Z79.899 Other long term (current) drug therapy; Z96.653 Presence of artificial knee joint, bilateral; W19.XXXA Unspecified fall, initial encounter
CPT/HCPCS: 71010; 73560; 73590; 73630; 78452; 78582; 80048; 80053; 82550; 83735; 84484; 85025; 85379; 85610; 85730; 93005; 93017; 93306; 93971; 96360; 97162; 99285; A9502; A9540; A9567; G0378; G8987; G8988; J2785; J7030; L1830